=== PATIENT | female | born 1950 | race Caucasian/White ===

== ENCOUNTER → 2025-02-21 | Outpatient (CLI) | payer MEDICARE, SELFPAY ==
--- NOTE | 2025-02-21 12:44 | XR_ITS ---
Examination: Ribs, bilateral, with PA chest, 4 views Technique: Chest PA, RIBS AP, RPO, LPO, 4 views Exam date and time: February 21, 2025 1659 hours INDICATIONS: Patient fell today with injury to the chest bilateral rib pain Findings: No pneumothorax Normal heart size Scarring in the lingular segment Clavicles appear intact Nondisplaced fracture left seventh rib posteriorly IMPRESSION: Acute appearing nondisplaced fracture left seventh rib posteriorly No pneumothorax or hemothorax
== END | disposition home or self-care (01) ==
PROVIDERS: PCP Specialist; Referring Provider Specialist; Visit Provider Specialist
DX: S22.32XA Fracture of one rib, left side, initial encounter for closed fracture (principal); W19.XXXA Unspecified fall, initial encounter
CPT/HCPCS: 71111